=== PATIENT | female | born 1985 | race American Indian/Alaskan Native ===

== ENCOUNTER 2017-11-01 12:40 | Emergency (ER) | payer OTHER, BC ==
--- NOTE | 2017-11-01 13:21 | EDM.PDOC ---
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 Past medical history: As per history of present illness and as reviewed below otherwise noncontributory. Surgical history: As per history of present illness and as reviewed below otherwise noncontributory. Social history: No reported history of drug or alcohol abuse. Family history: As per history of present illness and as reviewed below otherwise noncontributory. Physical exam: Alert and oriented female answering questions appropriately in full sentences she has good affectof breath is noted dry HEENT: Atraumatic, normocehpalic, pupils reactive, negative for conjunctival pallor or scleral icterus, mucous membranes moist, throat clear, neck supple, nontender, trachea midline. Lungs: Clear to auscultation, breath sounds equal bilaterally, chest non tender. Heart: S1S2, regular, negative for clicks, rubs, or JVD. Abdomen: Soft, nondistended, nontender. Negative for masses or hepatossplenmegaly. Negative for costovertebral tenderness. Pelvis: Stable nontender. Genitourinary: Deferred. Rectal: Deferred Extremities: Atraumatic, negative for cords or calf pain. Neurovascular unremarkable. Neuro: Awake, alert, oriented. Cranial nerves II through XII unremarkable. Cerebellum unremarkable. Motor and sensory unremarkable throughout. Exam nonfocal. Discussed with the patient there is no narcotics in her drug screen, gave her reassurance Vision denies need for anti-anxiety for her panic Diagnostics: []Urine drug screen Therapeutics: [] Impression: []Worried well Plan: []Discharge to home follow up with your primary care provider as needed Turned to the emergency room as directed and discussed Definitive disposition and diagnosis as appropriate pending reevaluation and review of above. Onset: Gradual Duration: Hour(s): Location: Reports: Generalized - Related Data Allergies Allergy/AdvReac Type Severity Reaction Status Date / Time No Known Allergies Allergy Verified 11/01/17 12:56 Home Meds: Home Meds . [No Known Home Meds] 08/08/15 [History] Past Medical History [employer] History: Reports: Psychiatric History: Reports: Anxiety, Depression, Panic Attack Hematologic History: Reports: Anemia - Infectious Disease History Infectious Disease History: Reports: Chicken Pox - Past Surgical History HEENT Surgical History: Reports: Adenoidectomy, Tonsillectomy Social & Family History - Family History Family Medical History: Noncontributory Cardiac: Reports: Hypertension, ID Psychiatric: Reports: Autism, Depression - Tobacco Use Smoking Status *Q: Current Every Day Smoker Years of Tobacco use: 4 Packs/Tins Daily: 0.5 Second Hand Smoke Exposure: Yes - Caffeine Use Caffeine Use: Reports: Coffee Caffeine Use Comment: 2-3/day - Recreational Drug Use Recreational Drug Use: No ED ROS GENERAL - Review of Systems Review Of Systems: ROS reveals no pertinent complaints other than HPI. ED EXAM, GENERAL - Physical Exam Exam: See Below (See dictation) Course - Vital Signs Last Recorded V/S: Last Vital Signs Temp 36.6 C 11/01/17 12:52 Pulse 98 11/01/17 14:15 Resp 20 11/01/17 14:15 BP 130/92 H 11/01/17 14:15 Pulse Ox 99 11/01/17 14:15 - Orders/Labs/Meds Orders: Active Orders 24 hr Category Date Time Status DRUG SCREEN, URINE [URCHEM] Stat Lab 11/01/17 13:30 Ordered Labs: Laboratory Tests 11/01/17 Range/Units 13:30 Urine Opiates Screen NEGATIVE (NEGATIVE) Ur Oxycodone Screen NEGATIVE (NEGATIVE) Urine Methadone Screen NEGATIVE (NEGATIVE) Ur Barbiturates Screen NEGATIVE (NEGATIVE) Ur Phencyclidine Scrn NEGATIVE (NEGATIVE) Ur Amphetamine Screen NEGATIVE (NEGATIVE) U Methamphetamines Scrn NEGATIVE (NEGATIVE) U Benzodiazepines Scrn NEGATIVE (NEGATIVE) U Cocaine Metab Screen NEGATIVE (NEGATIVE) U Marijuana (THC) Screen NEGATIVE (NEGATIVE) Departure - Departure Time of Disposition: 14:07 Disposition: Home, Self-Care 01 Condition: Good Clinical Impression: Physically well but worried - Discharge Information Instructions: Medical Screening Exam Referrals: PCP,None [Primary Care Provider] - Forms: ED Department Discharge Additional Instructions: The following information is given to patients seen in the emergency department who are being discharged to home. This information is to outline your options for follow-up care. We provide all patients seen in our emergency department with a follow-up referral. The need for follow-up, as well as the timing and circumstances, are variable depending upon the specifics of your emergency department visit. If you don't have a primary care physician on staff, we will provide you with a referral. We always advise you to contact your personal physician following an emergency department visit to inform them of the circumstance of the visit and for follow-up with them and/or the need for any referrals to a consulting specialist. The emergency department will also refer you to a specialist when appropriate. This referral assures that you have the opportunity for followup care with a specialist. All of these measure are taken in an effort to provide you with optimal care, which includes your followup. Under all circumstances we always encourage you to contact your private physician who remains a resource for coordinating your care. When calling for followup care, please make the office aware that this follow-up is from your recent emergency room visit. If for any reason you are refused follow-up, please contact the [facility] emergency department at and asked to speak to the emergency department charge nurse. 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
[2017-11-01 14:21] VITALS: BP 130/92
== END 2017-11-01 14:15 | disposition home or self-care (01) ==
LOC: MW.ED 12:40
DX: Z71.1 Person with feared health complaint in whom no diagnosis is made (principal); F17.210 Nicotine dependence, cigarettes, uncomplicated
CPT/HCPCS: 80305; 99283

== ENCOUNTER 2021-10-30 08:06 | Day surgery (SDC) | payer BC, OTHER ==
[~2021-10-30 08:06] MED LIST: Lactated Ringers 1,000 ML IV SCH
[2021-10-30] MEDS ORDERED: Ondansetron 4 MG/2 ML SDV ONE (08:56)
[2021-10-30] MEDS ORDERED: Lidocaine 2% 5 ML SDV ONE (08:56)
[2021-10-30] MEDS ORDERED: fentaNYL 100 MCG/2 ML SDV ONE ×2 (08:56→09:34)
[2021-10-30] MEDS ORDERED: Propofol 200 MG/20 ML SDV ONE (08:56)
[2021-10-30] MEDS ORDERED: Dexamethasone 4 MG/ML 5 ML MDV ONE (08:56)
[2021-10-30] MEDS ORDERED: Midazolam 1 MG/ML 2 ML SDV ONE (08:57)
[2021-10-30] MEDS ORDERED: HYDROmorphone 1 MG/ML Syringe IVPUSH PRN (09:02)
[2021-10-30] MEDS ORDERED: Ondansetron 4 MG/2 ML SDV IVPUSH PRN (09:02)
[2021-10-30] MEDS ORDERED: Metoclopramide 10 MG/2 ML SDV IVPUSH PRN (09:02)
[2021-10-30] MEDS ORDERED: Naloxone 0.4 MG/ML SDV IVPUSH PRN (09:02)
[2021-10-30] MEDS ORDERED: Albuterol 0.083% 2.5 MG/3 ML Neb Soln NEB PRN (09:02)
[2021-10-30] MEDS ORDERED: fentaNYL 100 MCG/2 ML SDV IVPUSH PRN (09:02)
[2021-10-30] MEDS ORDERED: Ketorolac 30 MG/ML SDV ONE (09:23)
[2021-10-30] MEDS ORDERED: Lidocaine 1% with EPINEPHrine 1:100,000 10 ML MDV ONE (09:35)
[2021-10-30 11:05] VITALS: PULSE 78
[2021-10-30 11:44] VITALS: BP 106/69
== END 2021-10-30 11:17 | disposition home or self-care (01) ==
LOC: MW.SDS 08:06
PROVIDERS: ATTEND Obstetrics & Gynecology
DX: D06.0 Carcinoma in situ of endocervix (principal); F32.A Depression, unspecified; F41.9 Anxiety disorder, unspecified; E66.9 Obesity, unspecified; Z68.32 Body mass index [BMI] 32.0-32.9, adult; F17.210 Nicotine dependence, cigarettes, uncomplicated; Z79.899 Other long term (current) drug therapy
CPT/HCPCS: 36415; 57460; 81025; 85027; J0131; J1100; J1885; J2250; J2704; J3010; J7120; 00940; J2405

== ENCOUNTER 2022-01-16 06:04 | Inpatient (IN) | payer OTHER ==
[2022-01-16] MEDS ORDERED: Lactated Ringers 1,000 ML IV SCH (06:30)
[2022-01-16 07:08] LABS: CARBON DIOXIDE,CO2 26.9 mmol/L (21.0-32.0); POTASSIUM,K 3.9 mmol/L (3.5-5.1)
[2022-01-16] MEDS ORDERED: Ondansetron 4 MG/2 ML SDV IVPUSH PRN ×2 (07:15→10:09)
[2022-01-16] MEDS ORDERED: Metoclopramide 10 MG/2 ML SDV IVPUSH PRN (07:15)
[2022-01-16] MEDS ORDERED: fentaNYL 50 MCG/ML SDV IVPUSH PRN (07:15)
[2022-01-16] MEDS ORDERED: HYDROmorphone 1 MG/ML Syringe IVPUSH PRN (07:15)
[2022-01-16] MEDS ORDERED: Naloxone 0.4 MG/ML SDV IVPUSH PRN (07:15)
[2022-01-16] MEDS ORDERED: Albuterol 0.083% 2.5 MG/3 ML Neb Soln NEB PRN (07:15)
[2022-01-16] MEDS ORDERED: Lidocaine 2% 5 ML SDV ONE (07:22)
[2022-01-16] MEDS ORDERED: Ondansetron 4 MG/2 ML SDV ONE ×2 (07:22→08:59)
[2022-01-16] MEDS ORDERED: Water For Injection, Sterile 20 ML ONE (07:22)
[2022-01-16] MEDS ORDERED: Rocuronium 100 MG/10 ML MDV ONE (07:22)
[2022-01-16] MEDS ORDERED: Dexmedetomidine 200 MCG/2 ML SDV ONE (07:22)
[2022-01-16] MEDS ORDERED: propofoL 100 ML ONE (07:23)
[2022-01-16] MEDS ORDERED: fentaNYL 100 MCG/2 ML SDV ONE (07:36)
[2022-01-16] MEDS ORDERED: Fluorescein 5 ML Vial ONE (07:39)
[2022-01-16] MEDS ORDERED: ceFAZolin 1 GM Vial ONE (08:42)
[2022-01-16] MEDS ORDERED: Scopolamine 1.5 MG Transdermal Patch ONE (08:53)
[2022-01-16] MEDS ORDERED: Bupivacaine 0.5% 30 ML SDV ONE (08:54)
[2022-01-16] MEDS ORDERED: Sugammadex Sodium 200 MG/2 ML VIAL ONE (08:59)
[2022-01-16] MEDS ORDERED: Ketorolac 30 MG/ML SDV ONE (08:59)
[2022-01-16] MEDS ORDERED: cefOXitin 1 GM Vial ONE (09:05)
[2022-01-16] MEDS ORDERED: Propofol 200 MG/20 ML SDV ONE (09:08)
[2022-01-16] MEDS ORDERED: Furosemide 40 MG/4 ML VIAL ONE (09:38)
[2022-01-16] MEDS ORDERED: Acetaminophen/oxyCODONE 325-5 MG Tab PO PRN ×2 (10:09)
[2022-01-16] MEDS ORDERED: Promethazine 25 MG/ML SDV IM PRN (10:09)
[2022-01-16] MEDS ORDERED: Acetaminophen 650 MG in Premix Bag 1 BAG IV SCH (10:15)
[2022-01-16] MEDS: Acetaminophen 650 MG in Premix Bag 1 BAG IV SCH ×4 (13:43→23:45)
[2022-01-16] MEDS: HYDROmorphone 2 MG/ML Syringe IVPUSH PRN ×2 (16:16→23:13)
[2022-01-16] MEDS: cefOXitin 2 GM in Premix Bag 1 BAG IV SCH ×2 (16:19→20:27)
[2022-01-16] MEDS: Lactated Ringers 1,000 ML IV SCH (23:12)
[2022-01-17] MEDS: cefOXitin 2 GM in Premix Bag 1 BAG IV SCH ×4 (03:41→20:53)
[2022-01-17] MEDS: Acetaminophen 650 MG in Premix Bag 1 BAG IV SCH ×2 (03:45→10:52)
[2022-01-17] MEDS: Lactated Ringers 1,000 ML IV SCH (06:31)
[2022-01-17] MEDS: HYDROmorphone 2 MG/ML Syringe IVPUSH PRN (06:31)
[2022-01-17] MEDS ORDERED: Ketorolac 30 MG/ML SDV IM SCH (08:00)
[2022-01-17 08:13] LABS: CARBON DIOXIDE,CO2 25.9 mmol/L (21.0-32.0); POTASSIUM,K 3.8 mmol/L (3.5-5.1)
[2022-01-17] MEDS ORDERED: Acetaminophen 325 MG Tab PO PRN (08:40)
[2022-01-17] MEDS: Ketorolac 30 MG/ML SDV IVPUSH SCH ×3 (09:32→20:52)
[2022-01-18] MEDS: cefOXitin 2 GM in Premix Bag 1 BAG IV SCH ×2 (03:36→08:40)
[2022-01-18] MEDS: Ketorolac 30 MG/ML SDV IVPUSH SCH (04:29)
[2022-01-18] MEDS ORDERED: Ibuprofen 800 MG Tab PO PRN (09:23)
[2022-01-18 11:49] VITALS: BP 144/92; PULSE 80
== END 2022-01-18 11:30 | disposition home or self-care (01) | DRG 740 ==
LOC: MW.SDS 06:04 → MW.MS 10:09
PROVIDERS: ADMIT Obstetrics & Gynecology; ATTEND Obstetrics & Gynecology
PROC: 0UT97ZZ Resection of Uterus, Via Natural or Artificial Opening (ICD-10-PCS; principal; 2022-01-16)
PROC: 0DQP7ZZ Repair Rectum, Via Natural or Artificial Opening (ICD-10-PCS; 2022-01-16)
PROC: 0TJB8ZZ Inspection of Bladder, Via Natural or Artificial Opening Endoscopic (ICD-10-PCS; 2022-01-16)
DX: D06.9 Carcinoma in situ of cervix, unspecified (principal); K91.71 Accidental puncture and laceration of a digestive system organ or structure during a digestive system procedure; N92.0 Excessive and frequent menstruation with regular cycle; K62.9 Disease of anus and rectum, unspecified; Y83.8 Other surgical procedures as the cause of abnormal reaction of the patient, or of later complication, without mention of misadventure at the time of the procedure
CPT/HCPCS: 00944; 36415; 80048; 84703; 85025; 86850; 86900; 86901; A9270-GY; J0131; J0690; J0694; J1170; J1885; J1940; J2405; J2704; J3010; J3490; J7120; U0002